=== PATIENT | female | born 1995 | race Caucasian/White ===

== ENCOUNTER 2018-06-13 12:45 | Emergency (ER) | payer MEDICAID ==
[~2018-06-13] VITALS: Ht 152.4 cm; Wt 97.1 kg
[2018-06-13 12:52] VITALS: Ht 152.4 cm; Wt 97.1 kg
[2018-06-13 14:08] VITALS: BP 139/80
== END 2018-06-13 14:08 | disposition home or self-care (01) ==
LOC: ED 12:45
DX: M25.561 Pain in right knee (principal); G89.29 Other chronic pain; J45.909 Unspecified asthma, uncomplicated
CPT/HCPCS: J1885

== ENCOUNTER 2018-07-23 18:05 | Emergency (ER) | payer OTHER ==
[~2018-07-23] VITALS: Ht 152.4 cm; Wt 99.8 kg
[2018-07-23 18:32] VITALS: Ht 152.4 cm; Wt 99.8 kg
[2018-07-23 21:05] VITALS: BP 125/78
== END 2018-07-23 21:05 | disposition home or self-care (01) ==
LOC: ED 18:05
DX: M25.512 Pain in left shoulder (principal); J45.909 Unspecified asthma, uncomplicated; F41.9 Anxiety disorder, unspecified; X50.0XXA Overexertion from strenuous movement or load, initial encounter; Y93.89 Activity, other specified; Y92.89 Other specified places as the place of occurrence of the external cause; Y99.0 Civilian activity done for income or pay
CPT/HCPCS: J1885

== ENCOUNTER 2018-08-31 15:47 | Emergency (ER) | payer OTHER ==
[~2018-08-31] VITALS: Ht 152.4 cm; Wt 100.2 kg
[2018-08-31 15:57] VITALS: BP 137/83; Ht 152.4 cm; Wt 100.2 kg
== END 2018-08-31 16:24 | disposition home or self-care (01) ==
LOC: ED 15:47
DX: S83.8X1A Sprain of other specified parts of right knee, initial encounter (principal); J45.909 Unspecified asthma, uncomplicated; F41.9 Anxiety disorder, unspecified; W21.07XA Struck by softball, initial encounter; Y93.64 Activity, baseball; Y92.89 Other specified places as the place of occurrence of the external cause; Y99.8 Other external cause status

== ENCOUNTER 2018-12-10 18:18 | Emergency (ER) | payer OTHER ==
[~2018-12-10] VITALS: Ht 152.4 cm; Wt 102.7 kg
[2018-12-10 18:32] VITALS: Ht 152.4 cm; Wt 102.7 kg
[2018-12-10 19:34] VITALS: BP 131/54
== END 2018-12-10 19:34 | disposition home or self-care (01) ==
LOC: ED 18:18
DX: S93.402A Sprain of unspecified ligament of left ankle, initial encounter (principal); G89.29 Other chronic pain; J45.909 Unspecified asthma, uncomplicated; F41.9 Anxiety disorder, unspecified; F32.9 Major depressive disorder, single episode, unspecified; Z98.890 Other specified postprocedural states; X50.1XXA Overexertion from prolonged static or awkward postures, initial encounter; Y93.89 Activity, other specified; Y92.89 Other specified places as the place of occurrence of the external cause; Y99.8 Other external cause status
CPT/HCPCS: Q0092

== ENCOUNTER 2018-12-18 13:13 | Emergency (ER) | payer OTHER ==
[~2018-12-18] VITALS: Ht 152.4 cm; Wt 100.7 kg
[2018-12-18 13:16] VITALS: Ht 152.4 cm; Wt 100.7 kg
[2018-12-18 15:39] VITALS: BP 132/81
== END 2018-12-18 15:39 | disposition home or self-care (01) ==
LOC: ED 13:13
DX: J45.909 Unspecified asthma, uncomplicated (principal)

== ENCOUNTER 2019-01-15 12:44 | Emergency (ER) | payer OTHER ==
[~2019-01-15] VITALS: Ht 152.4 cm; Wt 86.2 kg
[2019-01-15 12:52] VITALS: Ht 152.4 cm; Wt 86.2 kg
[2019-01-15 14:36] VITALS: BP 135/94
== END 2019-01-15 14:36 | disposition home or self-care (01) ==
LOC: ED 12:44
DX: M72.2 Plantar fascial fibromatosis (principal); J45.909 Unspecified asthma, uncomplicated; F41.9 Anxiety disorder, unspecified; Z98.890 Other specified postprocedural states

== ENCOUNTER 2019-01-22 17:08 | Emergency (ER) | payer OTHER ==
[~2019-01-22] VITALS: Ht 152.4 cm; Wt 99.8 kg
[2019-01-22 17:20] VITALS: Ht 152.4 cm; Wt 99.8 kg
[2019-01-22 19:35] VITALS: BP 135/92
== END 2019-01-22 19:35 | disposition home or self-care (01) ==
LOC: ED 17:08
DX: B34.9 Viral infection, unspecified (principal); I10 Essential (primary) hypertension; J45.909 Unspecified asthma, uncomplicated; F32.9 Major depressive disorder, single episode, unspecified; F41.9 Anxiety disorder, unspecified

== ENCOUNTER 2019-12-31 13:07 | Emergency (ER) | payer OTHER ==
[~2019-12-31] VITALS: Ht 152.4 cm; Wt 108.0 kg
[2019-12-31 13:24] VITALS: Ht 152.4 cm; Wt 108.0 kg
[2019-12-31 14:42] VITALS: BP 140/95
== END 2019-12-31 14:42 | disposition home or self-care (01) ==
LOC: ED 13:07
DX: S89.91XA Unspecified injury of right lower leg, initial encounter (principal); J45.909 Unspecified asthma, uncomplicated; Z88.6 Allergy status to analgesic agent; X58.XXXA Exposure to other specified factors, initial encounter; Y93.89 Activity, other specified; Y92.89 Other specified places as the place of occurrence of the external cause; Y99.8 Other external cause status
CPT/HCPCS: J1885; Q0092

== ENCOUNTER 2020-02-05 13:17 | Emergency (ER) | payer OTHER, SELFPAY ==
[~2020-02-05] VITALS: Ht 152.4 cm; Wt 106.1 kg
[2020-02-05 13:19] VITALS: BP 139/100; Ht 152.4 cm; Wt 106.1 kg
== END 2020-02-05 16:19 | disposition home or self-care (01) ==
LOC: ED 13:17
DX: R05 Cough (principal); R06.02 Shortness of breath; M79.10 Myalgia, unspecified site; J45.909 Unspecified asthma, uncomplicated; Z88.6 Allergy status to analgesic agent; Z20.828 Contact with and (suspected) exposure to other viral communicable diseases
CPT/HCPCS: U0003

== ENCOUNTER 2020-02-29 14:47 | Emergency (ER) | payer OTHER, SELFPAY ==
[~2020-02-29] VITALS: Ht 152.4 cm; Wt 106.1 kg
[2020-02-29 14:48] VITALS: BP 127/85; Ht 152.4 cm; Wt 106.1 kg
== END 2020-02-29 15:45 | disposition home or self-care (01) ==
LOC: ED 14:47
DX: B34.9 Viral infection, unspecified (principal); J45.909 Unspecified asthma, uncomplicated; Z88.6 Allergy status to analgesic agent; Z20.828 Contact with and (suspected) exposure to other viral communicable diseases
CPT/HCPCS: U0003

== ENCOUNTER 2020-03-07 17:10 | Emergency (ER) | payer OTHER, SELFPAY ==
[~2020-03-07] VITALS: Ht 154.9 cm; Wt 76.2 kg
[2020-03-07 17:13] VITALS: Ht 154.9 cm; Wt 76.2 kg
[2020-03-07 18:27] VITALS: BP 118/84
== END 2020-03-07 18:27 | disposition home or self-care (01) ==
LOC: ED 17:10
DX: M79.10 Myalgia, unspecified site (principal); J45.909 Unspecified asthma, uncomplicated; Z88.6 Allergy status to analgesic agent; Z20.828 Contact with and (suspected) exposure to other viral communicable diseases
CPT/HCPCS: U0003